=== PATIENT | female | born 1980 | race Caucasian/White ===

== ENCOUNTER 2017-04-26 18:30 | Emergency (ER) | payer OTHER, MEDICAID ==
--- NOTE | 2017-04-26 18:32 | EDPHY ---
H & P HPI/ROS: HPI CHIEF COMPLAINT: Excoriated skin site right inner breast fold HISTORY OF PRESENT ILLNESS: This patient is a 37-year-old female significant past medical history for asthma, fibromyalgia, diabetes, chronic pain,presents emergency room with a skin excoriated lesion to the right breast fold medial aspect since April 11. She states has been draining green discharge. No fever. Denies significant pain. Past Medical History: Asthma, diabetes, fibromyalgia, Past Surgical History: Cholecystectomy, tubal ligation Social History: Denies daily use of drugs alcohol tobacco products Family History: Noncontributory ROS REVIEW OF SYSTEMS: A comprehensive 10 point review of systems is otherwise negative aside from elements mentioned in the history of present illness. Exam Constitutional triage nursing summary reviewed, vital signs reviewed, awake/ alert. Eyes normal conjunctivae and sclera, EOMI, PERRLA. HENT normal inspection, atraumatic, moist mucus membranes, no epistaxis, neck supple/ no meningismus, no raccoon eyes. Respiratory clear to auscultation bilaterally, normal breath sounds, no respiratory distress, no wheezing. Cardiovascular rate normal, regular rhythm, no murmur, no edema, distal pulses normal. Gastrointestinal soft, non-tender, no rebound, no guarding, normal bowel sounds, no distension, no pulsatile mass. Genitourinary no CVA tenderness. Musculoskeletal no midline vertebral tenderness, full range of motion, no calf swelling, no tenderness of extremities, no meningismus, good pulses, neurovascularly intact. Skin right breast: Right breast fold there is an area of 2 cm x 2 cm of aches skin excoriation, no fluctuance, no induration, no drainage, . Shyann De Los Santos RN (at bedside) Neurologic awake, alert and oriented x 3, AAOx3, moves all 4 extremities equally, motor intact, sensory intact, CN II-XII intact, normal cerebellar, normal vision, normal speech. Psychiatric normal mood/affect. Heme/Lymph/Immune no lymphadenopathy. Differential Diagnosis: Includes but is not limited to in a particular order, breast cellulitis, MRSA infection, strep infection, underlying breast cancer Medical Decision Making: Plan for this patient warm compresses, Keflex. Follow up with Dr. Farr for breast evaluation. Or her primary care doctor Re-evaluation: Of note this patient has multiple allergies listed. She tells me she is in fact not allergic to Keflex or cephalexin. She tells me she is fine with this. Source: Patient - Personal History Tetanus Vaccine Date: 2010 - Medical/Surgical History Hx Asthma: Yes Hx Chronic Respiratory Disease: Yes Hx Diabetes: Yes Hx Cardiac Disease: No Hx Renal Disease: No Hx Cirrhosis: No Hx Alcoholism: No Hx HIV/AIDS: No Hx Splenectomy or Spleen Trauma: No Other PMH: copd,gerd,ibs,. type 2 diabetes/fibromyalgia/chronic pain. PALPITATIONS, MURMUR, MS - Social History Smoking Status: Light smoker Allergies/Adverse Reactions: amoxicillin [Amoxicillin] Allergy (Intermediate, Verified 05/29/16 21:45) Hives dextromethorphan Allergy (Intermediate, Verified 05/29/16 21:45) PROBLEMS cephalexin monohydrate [From Keflex] Allergy (Mild, Verified 05/29/16 21:45) Rash ibuprofen Allergy (Mild, Verified 04/04/16 23:18) GI upset latex [Latex] Allergy (Mild, Verified 05/29/16 21:45) BREAK OUTS duloxetine HCl [From Cymbalta] Allergy (Verified 07/26/16 22:48) nitrofurantoin [From Macrobid] Allergy (Verified 05/29/16 21:45) nitrofurantoin macrocrystalline [From Macrobid] Allergy (Verified 05/29/16 21:45 ) Penicillins Allergy (Verified 05/29/16 21:45) Sulfa (Sulfonamide Antibiotics) Allergy (Verified 05/29/16 21:45) BEES/WASPS Allergy (Severe, Uncoded 05/29/16 21:45) THROAT CLOSES/SHAKES/CHILLS PSEUDOEPHEDRINE HCL Allergy (Mild, Uncoded 05/29/16 21:45) UPSET STOMACH SEASONAL Allergy (Mild, Uncoded 05/29/16 21:45) NASAL CONGESTION Home Medications: Medication Instructions Recorded metFORMIN HCL [Glucophage] 500 mg PO DAILY PRN 05/20/13 oxyCODONE IR [Oxycodone HCl Ir] 30 mg PO Q4-6PRN PRN 05/27/13 Albuterol Hfa Anes Only [Proair 2 puffs IH Q4 PRN #1 mdi 01/24/14 Hfa Anes Only] Ms Contin 04/29/14 TRAMADOL HCL [RYZOLT] 06/23/14 Oxygen 10/16/14 Robaxin 500 mg (RX) 06/03/15 Metoprolol 12/02/15 Ondansetron Odt [Zofran Odt 4 mg 4 mg PO Q4 PRN #20 tab 04/05/16 (RX)] GABAPENTIN 05/29/16 Xopenex 05/29/16 Ambien 07/26/16 Bentyl 07/26/16 traZODone 07/26/16 Departure - Departure Disposition: Home, Routine, Self-Care Clinical Impression: Cellulitis of breast Condition: Good Instructions: Cellulitis (ED) Additional Instructions: 1. Warm compresses 2. Take Keflex as prescribed. 3. Follow up as instructed. Referrals: MARK HOPE,. [Primary Care Provider] - As per Instructions Rajwinder Farr MD [Medical Doctor] - As per Instructions
[2017-04-26 18:47] VITALS: BP 130/84; PULSE 113; RESP 18; TEMP 99; O2SAT 96
== END 2017-04-26 18:55 | disposition home or self-care (01) ==
LOC: CED 18:30
DX: N61.1 Abscess of the breast and nipple (principal); E11.9 Type 2 diabetes mellitus without complications; J44.9 Chronic obstructive pulmonary disease, unspecified; F17.200 Nicotine dependence, unspecified, uncomplicated; Z79.84 Long term (current) use of oral hypoglycemic drugs; Z91.040 Latex allergy status

== ENCOUNTER 2017-04-28 22:08 | Emergency (ER) | payer OTHER, MEDICAID ==
[2017-04-28 22:22] VITALS: TEMP 98.4
--- NOTE | 2017-04-28 22:29 | EDPHY ---
H & P Smoking Status: Current every day smoker Time Seen by Provider: 04/28/17 22:26 HPI/ROS: Chief complaint. Neck and back pain HPI. 37-year-old female presents emergency department with neck and upper back pain. 2 hours ago she was bending over the back of her vehicle unloading some things out of the back and the [place] came down and struck her on the back of the neck and upper back. She has pain to this area. Now she has a migraine as well. Did not strike her head or lose consciousness. No trouble breathing or chest discomfort. No focal weakness to arms or legs. She feels that her vertebra are moving as she twists and turns ROS Constitutional. no fever/chills, no weakness Eyes. no problems with vision ENT. no sore throat, no nasal drainage Cardiovascular. no chest pain Respiratory. no shortness of breath, no cough Abdominal. no abdominal pain, no nausea/vomiting, no diarrhea . no problems urinating MS. Neck and upper back pain Skin. no rash Lymph. no swollen glands Neuro. no headache, no dizziness, no difficulty walking or with speech (Trell Childs) Past Medical/Surgical History: Chronic pain, fibromyalgia, COPD, GERD, IBS, type 2 diabetes, asthma (Trell Childs) Social History: Single, daily smoker, no alcohol (Trell Childs) Physical Exam: General Appearance: Alert well-developed female mild distress vital signs are stable Eyes: Pupils equal and round no pallor or injection. ENT, Mouth: Mucous membranes are moist. Respiratory: There are no retractions, lungs are clear to auscultation. Cardiovascular: Regular rate and rhythm. Gastrointestinal: Abdomen is soft and nontender, no masses, bowel sounds normal. Neurological: Awake and alert, sensory and motor exams grossly normal. Skin: Warm and dry, no rashes. Musculoskeletal: Neck is diffusely tender as is the upper thoracic spine. There is no surface trauma. Lumbar spine is not injured. Extremities symmetrical, full range of motion. Psychiatric: Patient is oriented X 3, there is no agitation. (Trell Childs) Constitutional: Initial Vital Signs Temperature (C) 36.9 C 04/28/17 22:17 Heart Rate 86 04/28/17 22:17 Respiratory Rate 16 04/28/17 22:17 Blood Pressure 134/88 H 04/28/17 22:17 O2 Sat (%) 98 04/28/17 22:17 O2 Delivery Mode Room Air Allergies/Adverse Reactions: amoxicillin [Amoxicillin] Allergy (Intermediate, Verified 04/26/17 19:01) Hives dextromethorphan Allergy (Intermediate, Verified 04/26/17 19:01) PROBLEMS latex [Latex] Allergy (Mild, Verified 04/26/17 19:01) BREAK OUTS nitrofurantoin [From Macrobid] Allergy (Verified 04/26/17 19:01) nitrofurantoin macrocrystalline [From Macrobid] Allergy (Verified 04/26/17 19:01 ) Penicillins Allergy (Verified 04/26/17 19:01) Sulfa (Sulfonamide Antibiotics) Allergy (Verified 04/26/17 19:01) BEES/WASPS Allergy (Severe, Uncoded 04/26/17 19:01) THROAT CLOSES/SHAKES/CHILLS PSEUDOEPHEDRINE HCL Allergy (Mild, Uncoded 04/26/17 19:01) UPSET STOMACH Home Medications: Medication Instructions Recorded metFORMIN HCL [Glucophage] 500 mg PO DAILY PRN 05/20/13 oxyCODONE IR [Oxycodone HCl Ir] 30 mg PO Q4-6PRN PRN 05/27/13 Albuterol Hfa Anes Only [Proair 2 puffs IH Q4 PRN #1 mdi 01/24/14 Hfa Anes Only] Ms Contin 04/29/14 TRAMADOL HCL [RYZOLT] 06/23/14 Oxygen 10/16/14 Robaxin 500 mg (RX) 06/03/15 Metoprolol 12/02/15 Ondansetron Odt [Zofran Odt 4 mg 4 mg PO Q4 PRN #20 tab 04/05/16 (RX)] GABAPENTIN 05/29/16 Xopenex 05/29/16 Ambien 07/26/16 Bentyl 07/26/16 traZODone 07/26/16 Cephalexin [Keflex] 500 mg PO Q6H #28 cap 04/26/17 Medical Decision Making - Diagnostics Imaging Results: Imaging Impressions Cervical Spine X-Ray 04/28/17 22:35 Impression: C6-C7 degenerative disk disease. Thoracic Spine X-Ray 04/28/17 22:35 Impression: 1. Thoracic dextroscoliosis. Procedures: Ibuprofen 600 mg orally (Trell Childs) ED Course/Re-evaluation: Patient initially seen by Dr. Childs and I received the patient and assume the department at [address] Childs and discussed with Dr. Childs regarding patient plan. I have read Dr. Childs notes and agree with the following additions our explanations Clinical history: She reports some 1 hours ago prior to presentation bending over the trunk of the car having the tailgate follow up on her. Evidently this did doctor the ground and in so doing she did strike her chest against the rear of the car and also fall on the outstretched hand on the left wrist. With respect to the wrist: She does complain of some difficulty going down the radial aspect of the wrist into the thumb. It was not there previously. She has no prior injury to this area. She reports that to be mild in nature does not believe it is broken. She denies any numbness or tingling paresthesias. Pain does not radiate up the arm. Onset with the fall. Slowly getting somewhat worse while waiting here in the department as the pain begins to evolve. She describes as a achiness. [id number] With respect to the chest she complains of pain over the right lower anterior rib margin. It is not affecting her breathing. She does report getting when knocked out of her but was only transiently. At this time she is able to take a deep breath without any difficulty or sense of air hunger or pain in the ribs. It does seem to be somewhat worse when she twists or bends or takes a deep breath nonetheless. Pain itself is in the right intercostal margin anterior axillary line. Does not radiate. It is mild to moderate. Worse with taking deep breath. Onset with the fall. She does have a remote history of scoliosis having been monitored as an adolescent. Clinical findings: Constitutional: Well-nourished, well-developed, no acute distress. [No odor of alcohol] Neck: Diffusely tender, without step off, diffusely tender about all the lateral musculature. No bony midline tenderness Eyes: Pupils equal and reactive. No pallor Chest: Mild right costal margin tenderness in the anterior axial line however there is no crepitus or subcutaneous emphysema or splinting. Breath sounds normal. No signs of splinting respirations. Back: Nontender lumbar sacral spine. Abdomen: Nontender. No organomegaly. No abrasions Musculoskeletal: Whether snuffbox tenderness on the left there is no soft tissue swelling or edema. She does have some discomfort with range of motion passively of the wrist itself. Is also tenderness with both axial loading more so with axial traction of the left thumb. There is minimal tenderness over the radius proper as well as no tenderness over the ulna Skin: No observed abrasions or lacerations. Skin is warm and dry. Normal motor and sensation Neuro: Alert and oriented with a GCS of 15. No acute distress. No headache. Psych: Normal mood and affect. X-rays of the thoracic and lumbar spine have been interpreted by the radiologist and reviewed by me. Notable significant 27 degree of dextroscoliosis, as a chronic old finding but no acute fracture. My Plain Film Review: Plain film of left wrist for view series. Interpreted by me contemporaneously , films reviewed on the [place]. [No signs of fracture. Normal alignment. No soft tissue swelling noted. I met with the patient reviewed the plain films. We discussed the need to given the snuffbox tenderness for her to follow up with Orthopedics. She will have a thumb spica splint applied by the ER staff prior to discharge. Urine dip negative for blood. As part of the initial assessment she was given ibuprofen. When explained to her the need for ongoing pain management in the way of ibuprofen in her usual medications she accepted this readily.] Impressions: See discharge plan (Sixto So) - Data Points Medications Given: Discontinued Medications Ibuprofen (Motrin) 600 mg PO EDNOW ONE Stop: 04/28/17 22:36 Last Admin: 04/28/17 22:39 Dose: 600 mg Departure - Departure Disposition: Home, Routine, Self-Care Clinical Impression: Dorsal back pain Contusion of back Qualifiers: Encounter type: initial encounter Laterality: unspecified laterality Qualified Code(s): S20.229A - Contusion of unspecified back wall of thorax, initial encounter Sprain of left wrist Qualifiers: Encounter type: initial encounter Qualified Code(s): S63.502A - Unspecified sprain of left wrist, initial encounter Condition: Good Instructions: Contusion in Adults (ED), Wrist Sprain (ED) Additional Instructions: Continue ibuprofen 600 mg three times daily p.r.n.. Ice applications will help, 3 times a day for 20 min, and more if there is too much pain Continue usual medications Wear the splint until seen by Orthopedics next week Call Orthopedics on Monday for an appointment Referrals: MARK HOPE,. [Primary Care Provider] - As per Instructions Sekou Ribeiro MD [Medical Doctor] - 5-7 days, call for appt.
[2017-04-28] MEDS ORDERED: IBUPROFEN 600 MG TAB PO ONE (22:35)
[2017-04-29 00:38] VITALS: BP 126/82; PULSE 69; RESP 18; O2SAT 96
== END 2017-04-29 00:30 | disposition home or self-care (01) ==
LOC: CED 22:08
DX: S20.229A Contusion of unspecified back wall of thorax, initial encounter (principal); S63.502A Unspecified sprain of left wrist, initial encounter; J44.9 Chronic obstructive pulmonary disease, unspecified; E11.9 Type 2 diabetes mellitus without complications; F17.200 Nicotine dependence, unspecified, uncomplicated; Z91.040 Latex allergy status; Z79.84 Long term (current) use of oral hypoglycemic drugs; W22.8XXA Striking against or struck by other objects, initial encounter
CPT/HCPCS: 72040; 72070; 73110; 99284; L0172

== ENCOUNTER → 2017-08-01 | Outpatient (CLI) | payer OTHER, MEDICAID | LOC: CIMAGING 13:02 | PROVIDERS: ATTEND Registered Nurse | DX: M25.561 Pain in right knee (principal); M25.562 Pain in left knee; M25.551 Pain in right hip; M25.552 Pain in left hip | CPT/HCPCS: 73521-PO; 73562-PO; 80307; G0483 ==

== ENCOUNTER 2017-08-29 16:57 | Emergency (ER) | payer OTHER, MEDICAID ==
[2017-08-29 17:24] VITALS: RESP 16; O2SAT 94
--- NOTE | 2017-08-29 18:00 | EDPHY ---
H & P Time Seen by Provider: 08/29/17 17:33 HPI/ROS: This patient inverted her foot at 1:00 p.m. today explaining that she was crouched down smoking a cigarette in her backyard and her foot went numb due to the position she was an and she stood up and inverted her foot with immediate lateral pain to the ankle and foot with subsequent ecchymosis and swelling. She reports moderate pain at baseline becomes severe with any attempts to bear weight. She took ibuprofen with partial relief and notes no other exacerbating factors. She denies any other injuries from the event. ROS: Neuro: No numbness or tingling Musculoskeletal: No other injuries 5 point ROS is otherwise negative Past Medical/Surgical History: Type 2 diabetes GERD Fibromyalgia Chronic pain Recovering alcoholic Smoking Status: Heavy smoker Physical Exam: Physical Exam Vital signs are normal. General: No acute distress Eyes: Pupils equal and react to light. Extraocular motions are intact. Lungs: No respiratory distress. Cardiac: Brisk capillary refill is intact throughout. Pulses are 2+ and symmetric in the affected extremity. Skin: No rash or pallor. Extremities: Atraumatic normal except for right foot Right foot: Patient has ecchymosis laterally with associated tenderness just medial to the 5th metatarsal that extends to the lateral malleolus new Ankle: Ecchymosis and tenderness with associated swelling over the lateral malleolus. No medial tenderness. Neuro: Alert and oriented x3 with no sensorimotor deficits. Initial differential diagnosis: Foot fracture, ankle fracture, foot sprain, ankle sprain Constitutional: Initial Vital Signs Temperature (C) 36.7 C 08/29/17 17:18 Heart Rate 98 08/29/17 17:18 Respiratory Rate 16 08/29/17 17:18 Blood Pressure 150/87 H 08/29/17 17:18 O2 Sat (%) 94 08/29/17 17:18 O2 Delivery Mode Room Air Allergies/Adverse Reactions: amoxicillin [Amoxicillin] Allergy (Intermediate, Verified 08/29/17 17:16) Hives dextromethorphan Allergy (Intermediate, Verified 08/29/17 17:16) PROBLEMS latex [Latex] Allergy (Mild, Verified 08/29/17 17:16) BREAK OUTS nitrofurantoin [From Macrobid] Allergy (Verified 08/29/17 17:16) nitrofurantoin macrocrystalline [From Macrobid] Allergy (Verified 08/29/17 17:16 ) Penicillins Allergy (Verified 08/29/17 17:16) Sulfa (Sulfonamide Antibiotics) Allergy (Verified 08/29/17 17:16) BEES/WASPS Allergy (Severe, Uncoded 08/29/17 17:16) THROAT CLOSES/SHAKES/CHILLS PSEUDOEPHEDRINE HCL Allergy (Mild, Uncoded 04/26/17 19:01) UPSET STOMACH Home Medications: Medication Instructions Recorded metFORMIN HCL [Glucophage] 500 mg PO DAILY PRN 05/20/13 oxyCODONE IR [Oxycodone HCl Ir] 30 mg PO Q4-6PRN PRN 05/27/13 Albuterol Hfa Anes Only [Proair 2 puffs IH Q4 PRN #1 mdi 01/24/14 Hfa Anes Only] Ms Contin 04/29/14 TRAMADOL HCL [RYZOLT] 06/23/14 Oxygen 10/16/14 Robaxin 500 mg (RX) 06/03/15 Metoprolol 12/02/15 Ondansetron Odt [Zofran Odt 4 mg 4 mg PO Q4 PRN #20 tab 04/05/16 (RX)] GABAPENTIN 05/29/16 Xopenex 05/29/16 Ambien 07/26/16 Bentyl 07/26/16 traZODone 07/26/16 Cephalexin [Keflex] 500 mg PO Q6H #28 cap 04/26/17 MDM/Departure - MDM Diagnostics: Three-view Ankle x-ray reveals a talar avulsion fracture by my interpretation Three-view foot x-ray-no other fractures appreciated by my interpretation Imaging Results: Imaging Impressions Ankle X-Ray 08/29/17 17:25 Impression: Suspect extensor digitorum brevis avulsion injury off the lateral body of the calcaneus. Foot X-Ray 08/29/17 17:25 Impression: Age indeterminate cortical chip fracture anterior process of the talus. Foot x-ray: Dorsal chip fracture on talus by my interpretation no other fractures appreciated Ankle x-rays: Lateral chip fracture question calcaneus versus talus by my interpretation Imaging: I viewed and interpreted images myself ED Course/Re-evaluation: Patient is placed in a Walker boot by our tech. Patient is neurovascular intact post splint application I counseled the patient regarding her foot fractures. She understands the need to follow-up with Dr. evans-gravel screener whom she has seen before for prior injuries. I counseled her to take ibuprofen Tylenol for her discomfort and use crutches for partial weight-bearing Discussion: Minor avulsion fractures without neurovascular compromise or other complicating factors. - Depart Disposition: Home, Routine, Self-Care Clinical Impression: Fracture, talus closed Qualifiers: Encounter type: initial encounter Talus location: dome of talus Fracture alignment: nondisplaced Laterality: right Qualified Code(s): S92.144A - Nondisplaced dome fracture of right talus, initial encounter for closed fracture Condition: Good Instructions: Foot Fracture in Adults (ED) Additional Instructions: Diagnosis: Talar avulsion fracture of foot 2. Calcaneal lateral avulsion fracture Plan: Walker boot when up and about Crutches if needed for comfort Ibuprofen and Tylenol for pain Follow-up with Dr. evans-senior medical billing specialist for further evaluation and treatment plan. Call her tomorrow to arrange follow-up appointment for sometime within the next 2-5 days. Referrals: MARK HOPE,. [Primary Care Provider] - As per Instructions
[2017-08-29] MEDS ORDERED: IBUPROFEN 800 MG TAB PO ONE (19:28)
[2017-08-29 19:34] VITALS: BP 139/76; PULSE 83; TEMP 98.4
== END 2017-08-29 19:35 | disposition home or self-care (01) ==
LOC: CED 16:57
DX: S92.144A Nondisplaced dome fracture of right talus, initial encounter for closed fracture (principal); E11.9 Type 2 diabetes mellitus without complications; F17.200 Nicotine dependence, unspecified, uncomplicated; Z79.84 Long term (current) use of oral hypoglycemic drugs; Z91.040 Latex allergy status; X58.XXXA Exposure to other specified factors, initial encounter; Y92.007 Garden or yard of unspecified non-institutional (private) residence as the place of occurrence of the external cause
CPT/HCPCS: 73610; 73630; 99283; L4386

== ENCOUNTER 2017-10-10 21:04 | Emergency (ER) | payer OTHER, MEDICAID ==
--- NOTE | 2017-10-10 21:06 | EDPHY ---
H & P HPI/ROS: HPI CHIEF COMPLAINT: Left wrist pain. HISTORY OF PRESENT ILLNESS: Patient very pleasant 37-year-old female, she fell on outstretched hand while slipping on ice this morning. She continues to have left distal radius pain. She is neurovascular intact good radial pulse. Good cap refill. Complains of mild pain 3/10 left wrist. Took morphine prior to arrival. Denies any other areas of injury. Past Medical History: Asthma, fibromyalgia, diabetes Past Surgical History: Cholecystectomy Social History: Denies daily use of alcohol or drugs. Family History: Noncontributory ROS REVIEW OF SYSTEMS: A comprehensive 10 point review of systems is otherwise negative aside from elements mentioned in the history of present illness. Exam Constitutional appears well nontoxic triage nursing summary reviewed, vital signs reviewed, awake/alert. Eyes normal conjunctivae and sclera, EOMI, PERRLA. HENT normal inspection, atraumatic, moist mucus membranes, no epistaxis, neck supple/ no meningismus, no raccoon eyes. Respiratory clear to auscultation bilaterally, normal breath sounds, no respiratory distress, no wheezing. Cardiovascular rate normal, regular rhythm, no murmur, no edema, distal pulses normal. Gastrointestinal soft, non-tender, no rebound, no guarding, normal bowel sounds, no distension, no pulsatile mass. Genitourinary no CVA tenderness. Musculoskeletal no midline vertebral tenderness, full range of motion, no calf swelling, no tenderness of extremities, no meningismus, good pulses, neurovascularly intact. Left arm: Left wrist good radial pulse. Tender palpation of the distal radius, no scaphoid tenderness, no snuffbox tenderness, neurovascular intact good project control analyst strength. Full range of motion. Good radial pulse. Good cap refill. Skin pink, warm, & dry, no rash, skin atraumatic. Neurologic awake, alert and oriented x 3, AAOx3, moves all 4 extremities equally, motor intact, sensory intact, CN II-XII intact, normal cerebellar, normal vision, normal speech. Psychiatric normal mood/affect. Heme/Lymph/Immune no lymphadenopathy. Differential Diagnosis: Includes but is not limited to in a particular order left wrist contusion, left wrist sprain, left wrist fracture, soft tissue injury Medical Decision Making: Plan for this patient x-ray left wrist. Tylenol 1 g for pain control here in emergency room. Re-evaluate. Re-evaluation: X-ray left wrist: Reviewed by myself. I do not appreciate acute fracture. Patient be placed in a Velcro wrist splint with orthopedic follow-up. Source: Patient - Personal History Tetanus Vaccine Date: 2016 - Medical/Surgical History Hx Asthma: Yes Hx Chronic Respiratory Disease: Yes Hx Diabetes: Yes Hx Cardiac Disease: Yes Hx Renal Disease: No Hx Cirrhosis: No Hx Alcoholism: Yes Hx HIV/AIDS: No Hx Splenectomy or Spleen Trauma: No Other PMH: copd,gerd,ibs,. type 2 diabetes/fibromyalgia/chronic pain. PALPITATIONS, MURMUR, MS. "recovering alcoholic" Last drink March or April 2017 per pt - Social History Smoking Status: Heavy smoker Constitutional: Initial Vital Signs Temperature (C) 36.5 C 10/10/17 21:35 Heart Rate 98 10/10/17 21:35 Respiratory Rate 16 10/10/17 21:35 Blood Pressure 145/66 H 10/10/17 21:35 O2 Sat (%) 96 10/10/17 21:35 O2 Delivery Mode Room Air Allergies/Adverse Reactions: amoxicillin [Amoxicillin] Allergy (Intermediate, Verified 10/10/17 21:32) Hives dextromethorphan Allergy (Intermediate, Verified 10/10/17 21:32) PROBLEMS latex [Latex] Allergy (Mild, Verified 10/10/17 21:32) BREAK OUTS nitrofurantoin [From Macrobid] Allergy (Verified 10/10/17 21:32) nitrofurantoin macrocrystalline [From Macrobid] Allergy (Verified 10/10/17 21:32 ) Penicillins Allergy (Verified 10/10/17 21:32) Sulfa (Sulfonamide Antibiotics) Allergy (Verified 10/10/17 21:32) BEES/WASPS Allergy (Severe, Uncoded 08/29/17 17:16) THROAT CLOSES/SHAKES/CHILLS PSEUDOEPHEDRINE HCL Allergy (Mild, Uncoded 04/26/17 19:01) UPSET STOMACH Home Medications: Medication Instructions Recorded metFORMIN HCL [Glucophage] 500 mg PO DAILY PRN 05/20/13 oxyCODONE IR [Oxycodone HCl Ir] 30 mg PO Q4-6PRN PRN 05/27/13 Albuterol Hfa Anes Only [Proair 2 puffs IH Q4 PRN #1 mdi 01/24/14 Hfa Anes Only] Ms Contin 04/29/14 TRAMADOL HCL [RYZOLT] 06/23/14 Oxygen 10/16/14 Robaxin 500 mg (RX) 06/03/15 Metoprolol 12/02/15 Ondansetron Odt [Zofran Odt 4 mg 4 mg PO Q4 PRN #20 tab 04/05/16 (RX)] GABAPENTIN 05/29/16 Xopenex 05/29/16 Ambien 07/26/16 Bentyl 07/26/16 traZODone 07/26/16 Medical Decision Making - Data Points Medications Given: Discontinued Medications Acetaminophen (Tylenol) 1,000 mg PO EDNOW ONE Stop: 10/10/17 21:21 Last Admin: 10/10/17 21:29 Dose: 1,000 mg Departure - Departure Disposition: Home, Routine, Self-Care Clinical Impression: Left wrist sprain Qualifiers: Encounter type: initial encounter Qualified Code(s): S63.502A - Unspecified sprain of left wrist, initial encounter Condition: Good Instructions: Wrist Sprain (ED) Additional Instructions: 1. Stay in your wrist splint for comfort. 2. Ibuprofen or Tylenol for pain control. 3. Follow up with Orthopedics. Referrals: CHAN NEWSOME [Primary Care Provider] - As per Instructions Tuan Ortiz MD [Medical Doctor] - As per Instructions
[2017-10-10] MEDS ORDERED: ACETAMINOPHEN 500 MG TAB PO ONE (21:20)
[2017-10-10 21:39] VITALS: BP 145/66; PULSE 98; RESP 16; TEMP 97.7; O2SAT 96
== END 2017-10-10 22:13 | disposition home or self-care (01) ==
LOC: CED 21:04
DX: S63.502A Unspecified sprain of left wrist, initial encounter (principal); E11.9 Type 2 diabetes mellitus without complications; J44.9 Chronic obstructive pulmonary disease, unspecified; F17.200 Nicotine dependence, unspecified, uncomplicated; Z91.040 Latex allergy status; Z79.84 Long term (current) use of oral hypoglycemic drugs; W01.0XXA Fall on same level from slipping, tripping and stumbling without subsequent striking against object, initial encounter
CPT/HCPCS: 73110; 99283; L3908